=== PATIENT | female | born 1990 | race African-American/Black ===

== ENCOUNTER 2017-03-25 17:49 | Emergency (ER) | payer SELFPAY ==
[~2017-03-25] VITALS: Ht 175.3 cm; Wt 125.0 kg
[~2017-03-25 17:49] MED LIST: IBUP800T23 PO; METH750T2 PO
[2017-03-25 17:51] VITALS: BP 146/82; PULSE 92; RESP 20; TEMP 98; O2SAT 98
[2017-03-25] MEDS ORDERED: MULTTAB67 PO (18:11)
[2017-03-25] MEDS ORDERED: DICL75TA PO (18:26)
[2017-03-25] MEDS ORDERED: OFLO0.3D9 RIGHT EAR (18:26)
[2017-03-25] MEDS ORDERED: AMOX875T PO (18:26)
[2017-03-25] MEDS ORDERED: ACETAMINOPHEN/HYDROcodone 325 MG/5 MG TAB PO ONE (18:30)
--- NOTE | 2017-03-25 18:40 | PD ---
HPI Chief Complaint: ENT Complaint Time Seen by Provider: 18:34 Travel History International Travel<30 days: No Contact w/Intl Traveler<30days: No Traveled to known affect area: No History of Present Illness HPI 26 yo female here for evaluation of ear pain. Bilateral but worst on the right. Discharge noted. Pain is 6/10. Started yesterday but worse today. has been putting ear drops to get rid of the earwax with no relief. States having chronic allergies and thought this was it. No other symptoms reported. PFSH Past Medical History Hx Anticoagulant Therapy: No Cardiovascular Problems: No Chemotherapy: No Cerebrovascular Accident: No Diabetes: No Diminished Hearing: No Hypertension: Yes (gestational) Respiratory: No Pancreatitis: Yes ?: Not : 5 Para: 2 Miscarriage: 2 : 1 Dilation and Curettage (D&C): Yes (2008) Past Surgical History Section: Yes (x2) Gynecologic Surgery: Yes Hysterectomy: No Social History Alcohol Use: Yes Tobacco Use: No Substance Use: No Allergies-Medications (Allergen,Severity, Reaction): Coded Allergies: Bactrim (Verified Allergy, Severe, Itching, 03/25/17) Levaquin (Verified Allergy, Severe, Itching, 03/25/17) Sulfa (Verified Allergy, Severe, Hives, 03/25/17) Chocolate (Verified Allergy, Intermediate, HIVES, ITCHING, 03/25/17) Uncoded Allergies: DIAL SOAP (Allergy, Mild, HIVES, 10/09/08) Reported Meds & Prescriptions Reported Meds & Active Scripts Active Diclofenac Sodium DR (Diclofenac Sodium) 75 Mg Tabdr 75 Mg PO BID Ofloxacin Otic Drops 0.3 % Drops 5 Drop RIGHT EAR DAILY Amoxicillin 875 Mg Tab 875 Mg PO BID 10 Days Reported Multiple Vitamin 1 Tab 1 Tab PO DAILY Review of Systems Except as stated in HPI: all other systems reviewed are Neg Physical Exam Narrative GENERAL: SKIN: Warm and dry. HEAD: Atraumatic. Normocephalic. EYES: Pupils equal and round. No scleral icterus. No injection or drainage. ENT: No nasal bleeding or discharge. Mucous membranes pink and moist. Tongue is midline. No uvula deviation. Right TM cannot be visualized secondary to swelling to the ear canal and mild earwax. Drainage noted. Left TM has cerumen impaction otherwise normal. No lymphadenopathy. Nostrils patent with no discharge or mass. No mastoid tenderness. NECK: Trachea midline. No JVD. CARDIOVASCULAR: Regular rate and rhythm. RESPIRATORY: No accessory muscle use. Clear to auscultation. Breath sounds equal bilaterally. GASTROINTESTINAL: Abdomen soft, non-tender, nondistended. Hepatic and splenic margins not palpable. MUSCULOSKELETAL: Extremities without clubbing, cyanosis, or edema. No obvious deformities. NEUROLOGICAL: Awake and alert. No obvious cranial nerve deficits. Motor grossly within normal limits. Five out of 5 muscle strength in the arms and legs. Normal speech. PSYCHIATRIC: Appropriate mood and affect; insight and judgment normal. Data Data Last Documented VS Vital Signs Date Time Temp Pulse Resp B/P Pulse Ox O2 Delivery O2 Flow Rate FiO2 03/25/17 17:51 98.0 92 20 146/82 98 Room Air Orders Acetamin-Hydrocod 325-5 Mg ([place] 5-325 (03/25/17 18:30) MDM Medical Decision Making Medical Screen Exam Complete: Yes Emergency Medical Condition: Yes Medical Record Reviewed: Yes Differential Diagnosis otitis media vs otitis externa vs allergic reaction Narrative Course 26 yo female here for ear pain. patient was examined and found to have otitis externa with possible media. Will treat for both with amoxicillin and ofloxacin. Given pain med her secondary to pain. Given prescription for diclofenac sodium for pain. F/u with PCP. See ED if worst. Diagnosis Primary Impression: Otitis externa of right ear Qualified Code: H60.501 - Acute otitis externa of right ear, unspecified type Additional Impression: Otitis media Qualified Code: H66.001 - Acute suppurative otitis media of right ear without spontaneous rupture of tympanic membrane, recurrence not specified Patient Instructions: General Instructions Additional Instructions: Motrin and Tylenol for pain and fever. You can use [id number] antihistamine as well as well as Mucinex as needed for runny nose and congestion. Cough drops for cough as needed. Drink plenty of fluids. Follow-up with PCP. See ED for worsening symptoms. Med/Other Pt SpecificInfo: Prescription(s) given Scripts Diclofenac Sodium DR 75 Mg Tabdr75 Mg PO BID #20 TAB Ref 0 Prov:Quincy Gregory MD 03/25/17 Ofloxacin Otic Drops 0.3 % Drops5 Drop RIGHT EAR DAILY #1 BOTTLE Ref 0 Prov:Quincy Gregory MD 03/25/17 Amoxicillin 875 Mg [id number] Mg PO BID 10 Days Prov:Quincy Gregory MD 03/25/17 Disposition: 01 DISCHARGE HOME Condition: Stable Juvencio Bruno Mar 25, 2017 18:40
== END 2017-03-25 18:52 | disposition home or self-care (01) ==
LOC: NEPD 17:49
DX: H60.501 Unspecified acute noninfective otitis externa, right ear (principal); H66.001 Acute suppurative otitis media without spontaneous rupture of ear drum, right ear; K85.90 Acute pancreatitis without necrosis or infection, unspecified
CPT/HCPCS: 99283

== ENCOUNTER 2017-06-20 09:56 | Emergency (ER) | payer MEDICAID, OTHER ==
[~2017-06-20] VITALS: Ht 175.3 cm; Wt 120.5 kg
[~2017-06-20 09:56] MED LIST changes: +AMOX875T PO; +DICL75TA PO; -IBUP800T23 PO; -METH750T2 PO; +MULTTAB67 PO; +OFLO0.3D9 RIGHT EAR
[2017-06-20 09:58] VITALS: BP 148/88; PULSE 80; RESP 20; TEMP 98.8; O2SAT 100
[2017-06-20] MEDS ORDERED: PREN1TAB58 (10:27)
[2017-06-20 10:32] LABS: AUTOMATED NEUTROPHIL # 6.7 TH/MM3 (1.8-7.7); BASOPHIL # 0.1 TH/MM3 (0-0.2); BASOPHIL % 1.1 % (0.0-2.0); EOSINOPHIL # 0.1 TH/MM3 (0-0.4); EOSINOPHIL % 0.9 % (0.0-4.0); HEMATOCRIT 39.9 % (35.0-46.0); HEMO FLAGS DIFF FINAL; LYMPH % 12.6 % (9.0-44.0); LYMPHOCYTE # 1.1 TH/MM3 (1.0-4.8); MEAN CORPUSCULAR HEMOGLOBIN 30.9 PG (27.0-34.0); MEAN CORPUSCULAR HGB CONC 33.2 % (32.0-36.0); MONO % 8.5 % (0.0-8.0); NEUT % 76.9 % (16.0-70.0); PLATELET COUNT 221 TH/MM3 (150-450); RED BLOOD COUNT 4.29 MIL/MM3 (4.00-5.30); RED CELL DISTRIBUTION WIDTH 13.5 % (11.6-17.2); WHITE BLOOD COUNT 8.7 TH/MM3 (4.0-11.0)
[2017-06-20 10:49] LABS: BICARBONATE 23.9 MEQ/L (21.0-32.0); POTASSIUM 3.9 MEQ/L (3.5-5.1)
[2017-06-20 10:50] LABS: BLOOD, URINE NEG (NEG); COMMENT (UR) CULT NOT INDICATED; CULTURE IF INDICATED CULT NOT INDICATED; GLUCOSE,URINE NEG (NEG); HYALINE CAST, URINE 1 /lpf (RARE); KETONE, URINE NEG (NEG); NITRITE,URINE NEG (NEG); SQUAMOUS EPITHELIAL CELL URINE 16 /hpf (0-5); URINE COLOR YELLOW (YELLW/STRAW)
[2017-06-20 11:05] VITALS: BP 138/67; PULSE 70; RESP 18; O2SAT 100
--- NOTE | 2017-06-20 11:58 | PD ---
HPI Chief Complaint: Abdominal Pain Time Seen by Provider: 11:14 Travel History International Travel<30 days: No Contact w/Intl Traveler<30days: No Traveled to known affect area: No History of Present Illness HPI This is a 27-year-old female who presents to the emergency department with right upper quadrant abdominal pain that's been going on for 4 days, intermittent, moderate severity, feeling like a stabbing pain that goes away. She denies any fevers or chills. She's had some loose stools today. She has been vomiting that she had a positive home test. She's not seen a oxyacetylene burner yet. This is her third . PFSH Past Medical History Hx Anticoagulant Therapy: No Cardiovascular Problems: No Chemotherapy: No Cerebrovascular Accident: No Diabetes: No Diminished Hearing: No Hypertension: Yes (gestational) Respiratory: No Pancreatitis: Yes ?: : 5 Para: 2 Miscarriage: 2 : 1 Dilation and Curettage (D&C): Yes (2009) Past Surgical History Section: Yes (x2) Gynecologic Surgery: Yes Hysterectomy: No Social History Alcohol Use: Yes Tobacco Use: No Substance Use: No Allergies-Medications (Allergen,Severity, Reaction): Coded Allergies: Sulfa (Sulfonamide Antibiotics) (Verified Allergy, Severe, Hives, 06/20/17) levofloxacin (Verified Allergy, Severe, Itching, 06/20/17) sulfamethoxazole (Verified Allergy, Severe, Itching, 06/20/17) trimethoprim (Verified Allergy, Severe, Itching, 06/20/17) chocolate flavor (Verified Allergy, Intermediate, HIVES, ITCHING, 06/20/17) Uncoded Allergies: DIAL SOAP (Allergy, Mild, HIVES, 10/09/08) Reported Meds & Prescriptions Reported Meds & Active Scripts Active Reported Vitamin Formula Tb ( Vit/Iron Fumarate/FA) 27 Mg Iron-800 Mcg Tablet Review of Systems Except as stated in HPI: all other systems reviewed are Neg Physical Exam Narrative GENERAL:Well appearing, no acute distress SKIN: Focused skin assessment warm and dry. HEAD: Atraumatic. Normocephalic. EYES: Pupils equal and round. No injection or drainage. ENT: Moist mucous membranes NECK: Trachea midline. CARDIOVASCULAR: Regular rate and rhythm. No murmur appreciated. RESPIRATORY: Clear to auscultation. Breath sounds equal bilaterally. GASTROINTESTINAL: Abdomen soft, non-tender, nondistended. MUSCULOSKELETAL: No obvious deformities. NEUROLOGICAL: Awake and alert. No obvious cranial nerve deficits. Moving all extremities. PSYCHIATRIC: Appropriate mood and affect; insight and judgment normal. Data Data Last Documented VS Vital Signs Date Time Temp Pulse Resp B/P (MAP) Pulse Ox O2 Delivery O2 Flow Rate FiO2 06/20/17 11:05 70 18 138/67 (90) 100 Room Air 06/20/17 09:58 98.8 Orders Orders Complete Blood Count With Diff (06/20/17 10:06) Basic Metabolic Panel (Bmp) (06/20/17 10:06) Urinalysis - C+S If Indicated (06/20/17 10:06) Ed Urine Pregnancytest Poc (06/20/17 10:06) Us Pelvis (Ques Preg/Ectopic) (06/20/17 ) Beta Hcg (Quant/Titer) (06/20/17 10:16) Hepatic Functional Panel (06/20/17 11:53) Lipase (06/20/17 11:53) Labs Laboratory Tests Test 06/20/17 10:10 06/20/17 10:16 Urine Color YELLOW Urine Turbidity HAZY Urine pH 7.0 Urine Specific [place] 1.022 Urine Protein 100 mg/dL Urine Glucose (UA) NEG mg/dL Urine Ketones NEG mg/dL Urine Occult Blood NEG Urine Nitrite NEG Urine Bilirubin NEG Urine Urobilinogen LESS THAN 2.0 MG/DL Urine Leukocyte Esterase NEG Urine RBC 1 /hpf Urine WBC 1 /hpf Urine Squamous Epithelial Cells 16 /hpf Urine Hyaline Casts 1 /lpf Microscopic Urinalysis Comment CULT NOT INDICATED White Blood Count 8.7 TH/MM3 Red Blood Count 4.29 MIL/MM3 Hemoglobin 13.2 GM/DL Hematocrit 39.9 % Mean Corpuscular Volume 93.0 FL Mean Corpuscular Hemoglobin 30.9 PG Mean Corpuscular Hemoglobin Concent 33.2 % Red Cell Distribution Width 13.5 % Platelet Count 221 TH/MM3 Mean Platelet Volume 8.7 FL Neutrophils (%) (Auto) 76.9 % Lymphocytes (%) (Auto) 12.6 % Monocytes (%) (Auto) 8.5 % Eosinophils (%) (Auto) 0.9 % Basophils (%) (Auto) 1.1 % Neutrophils # (Auto) 6.7 TH/MM3 Lymphocytes # (Auto) 1.1 TH/MM3 Monocytes # (Auto) 0.7 TH/MM3 Eosinophils # (Auto) 0.1 TH/MM3 Basophils # (Auto) 0.1 TH/MM3 CBC Comment DIFF FINAL Differential Comment Blood Urea Nitrogen 7 MG/DL Creatinine 0.78 MG/DL Random Glucose 84 MG/DL Calcium Level 8.7 MG/DL Sodium Level 136 MEQ/L Potassium Level 3.9 MEQ/L Chloride Level 105 MEQ/L Carbon Dioxide Level 23.9 MEQ/L Anion Gap 7 MEQ/L Estimat Glomerular Filtration Rate 106 ML/MIN Human Chorionic Gonadotropin, Quant 75243 MIU/ML MDM Medical Decision Making Medical Screen Exam Complete: Yes Emergency Medical Condition: Yes Interpretation(s) Afebrile, no tachycardia No leukocytosis 76% neutrophils Electrolytes are reassuring HCG is negative Urinalysis is negative for infection Differential Diagnosis Cholelithiasis, cholecystitis, ectopic , pancreatitis, gastritis, GERD Narrative Course This is a 27-year-old female who presents to the emergency department with intermittent right upper quadrant pain. She is . She is placed on a monitor and an IV was established. Labs were obtained which demonstrate no leukocytosis. Pelvic ultrasound was obtained which demonstrates a 7 week intrauterine with a heart rate of 157. I suspect the patient may have biliary colic. I don't think an emergent ultrasound is necessary given she has no other signs of acute cholecystitis. I asked her to avoid fatty foods. She will follow up with her outpatient savings counselor. I think patient is safe for discharge. Diagnosis Primary Impression: Biliary colic Patient Instructions: General Instructions Additional Instructions: If you develop severe or worsening abdominal pain, fever>100.4, persistent vomiting or inability to eat or drink return to the emergency department immediately. Follow-up with your savings counselor at your next scheduled appointment. Avoid eating fatty foods. Med/Other Pt SpecificInfo: No Change to Meds Disposition: 01 DISCHARGE HOME Condition: Stable Janice Cornelius MD Jun 20, 2017 11:58
--- NOTE | 2017-06-20 12:03 | RADRPT ---
EXAM DATE/TIME: 06/20/2017 11:08 [facility] COMPARISON: No previous studies available for comparison. INDICATIONS : Pelvic pain. LAB(S): Beta-hC,787 MEDICAL HISTORY : . Gestational hypertension. Pancreatitis. SURGICAL HISTORY : Dilation and curettage. Left knee surgery. ENCOUNTER: Initial ACUITY: 2 days PAIN SCORE: 7/10 LOCATION: Bilateral pelvis MEASUREMENTS: UTERUS: 11.0 x 6.0 x 6.4 cm ENDOMETRIAL STRIPE: 19 mm RIGHT OVARY: 2.8 x 2.2 x 2.0 cm LEFT OVARY: 3.1 x 2.8 x 2.1 cm FREE FLUID: No CROWN RUMP LENGTH: 1.3 cm = 7 WKS 3 DAYS FHR: 157 BPM FINDINGS: A single intrauterine is identified and demonstrates cardiac activity. The crown rump azael th correlates to a gestational age of 7 weeks and 3 days. The gestational sac size correlates to a g estational age of 7 weeks and 3 days also. The heart rate is confirmed at 157 BMP. A yolk sac is noted. There is no free fluid within the cul de sac or adnexal mass. There is a small hypoechoi c area adjacent to the gestational sac measuring 1.7 x .9 x 1.7 cm consistent with a possible small s ubchorionic hemorrhage. A complex cyst is noted within the left ovary measuring 1.0 x 1.0 x 1.5 cm. The right ovary is unremarkable. CONCLUSION: 1. A single intrauterine with cardiac activity. [place] rump length correlates to a gestatio nal age of 7 weeks and 3 days. 2. No evidence of free fluid within the cul de sac or adnexal mass. 3. Possible small subchorionic hemorrhage measuring 1.7 x .9 x 1.7 cm. Quincy Flores MD on June 20, 2017 at 11:46 Board Certified Radiologist. This report was verified electronically.
[2017-06-20 12:17] LABS: INDIRECT BILIRUBIN 0.2 MG/DL (0.0-0.8); TOTAL BILIRUBIN ADULT 0.3 MG/DL (0.2-1.0)
[2017-06-20 12:25] VITALS: BP 138/69
== END 2017-06-20 12:25 | disposition home or self-care (01) ==
LOC: NEPD 09:56
DX: O99.611 Diseases of the digestive system complicating pregnancy, first trimester (principal); K80.50 Calculus of bile duct without cholangitis or cholecystitis without obstruction; Z3A.01 Less than 8 weeks gestation of pregnancy
CPT/HCPCS: 76700; 80048; 80076; 81001; 83690; 84702; 84703; 85025; 99284

== ENCOUNTER 2017-07-15 11:33 | Emergency (ER) | payer MEDICAID ==
[~2017-07-15] VITALS: Ht 175.3 cm; Wt 120.0 kg
[~2017-07-15 11:33] MED LIST changes: -AMOX875T PO; -DICL75TA PO; -MULTTAB67 PO; -OFLO0.3D9 RIGHT EAR; +PREN1TAB58
[2017-07-15 11:36] VITALS: BP 132/72; PULSE 90; RESP 13; TEMP 99.5; O2SAT 96
[2017-07-15 12:22] VITALS: BP 128/82; PULSE 90; RESP 17; TEMP 98.8; O2SAT 99
--- NOTE | 2017-07-15 12:24 | PD ---
HPI Chief Complaint: Related Problem Time Seen by Provider: 12:23 Travel History International Travel<30 days: No Contact w/Intl Traveler<30days: No Traveled to known affect area: No History of Present Illness HPI 27-year-old female who is approximately 9 weeks gestation presents to the emergency department for evaluation of lower abdominal pressure, burning with urination, and pain on her toilet paper after wiping. This started this morning. Denies any vaginal discharge. Denies any nausea or vomiting. No fever or chills. Patient has no other symptoms to report. IUP confirmed on last visit at approximately 7 weeks. PFSH Past Medical History Hx Anticoagulant Therapy: No Cardiovascular Problems: No Chemotherapy: No Cerebrovascular Accident: No Diabetes: No Diminished Hearing: No Hypertension: Yes (gestational) Respiratory: No Pancreatitis: Yes ?: : 5 Para: 2 Miscarriage: 2 : 1 Dilation and Curettage (D&C): Yes (2009) Past Surgical History Section: Yes (x2) Gynecologic Surgery: Yes Hysterectomy: No Social History Alcohol Use: No Tobacco Use: No Substance Use: No Allergies-Medications (Allergen,Severity, Reaction): Coded Allergies: Sulfa (Sulfonamide Antibiotics) (Verified Allergy, Severe, Hives, 07/15/17) levofloxacin (Verified Allergy, Severe, Itching, 07/15/17) sulfamethoxazole (Verified Allergy, Severe, Itching, 07/15/17) trimethoprim (Verified Allergy, Severe, Itching, 07/15/17) chocolate flavor (Verified Allergy, Intermediate, HIVES, ITCHING, 07/15/17) Uncoded Allergies: DIAL SOAP (Allergy, Mild, HIVES, 10/09/08) Reported Meds & Prescriptions Reported Meds & Active Scripts Active Keflex (Cephalexin) 500 Mg Cap 500 Mg PO Q12H 7 Days Reported Vitamin Formula Tb ( Vit/Iron Fumarate/FA) 27 Mg Iron-800 Mcg Tablet Review of Systems Except as stated in HPI: all other systems reviewed are Neg Physical Exam Narrative GENERAL: Well-nourished female patient, in no acute distress SKIN: Focused skin assessment warm/dry. HEAD: Atraumatic. Normocephalic. EYES: Pupils equal and round. No scleral icterus. No injection or drainage. ENT: No nasal bleeding or discharge. Mucous membranes pink and moist. NECK: Trachea midline. No JVD. CARDIOVASCULAR: Regular rate and rhythm. No murmur appreciated. RESPIRATORY: No accessory muscle use. Clear to auscultation. Breath sounds equal bilaterally. GASTROINTESTINAL: Abdomen soft, distended. Suprapubic tenderness to palpation. Hepatic and splenic margins not palpable. GENITOURINARY: Normal external genitalia without lesions or erythema. Vaginal vault without blood or drainage. Cervical os was closed without drainage. No cervical motion tenderness. Uterus nontender and nonenlarged. Bilateral adnexa nontender without masses. MUSCULOSKELETAL: No obvious deformities. No clubbing. No cyanosis. No edema. NEUROLOGICAL: Awake and alert. No obvious cranial nerve deficits. Motor grossly within normal limits. Normal speech. PSYCHIATRIC: Appropriate mood and affect; insight and judgment normal. Data Data Last Documented VS Vital Signs Date Time Temp Pulse Resp B/P (MAP) Pulse Ox O2 Delivery O2 Flow Rate FiO2 07/15/17 14:39 07/15/17 13:50 74 17 100 Room Air 07/15/17 12:22 98.8 Orders Orders Urinalysis - C+S If Indicated (07/15/17 12:38) Gc And Chlamydia Pcr (07/15/17 12:38) Wet Prep Profile (07/15/17 12:38) Sodium Chlor 0.9% 1000 Ml Inj (Ns 1000 M (07/15/17 13:30) Labs Laboratory Tests Test 07/15/17 12:00 07/15/17 12:50 Urine Color YELLOW Urine Turbidity HAZY Urine pH 7.0 Urine Specific [place] 1.022 Urine Protein 100 mg/dL Urine Glucose (UA) NEG mg/dL Urine Ketones TRACE mg/dL Urine Occult Blood NEG Urine Nitrite NEG Urine Bilirubin NEG Urine Urobilinogen LESS THAN 2.0 MG/DL Urine Leukocyte Esterase NEG Urine RBC 1 /hpf Urine WBC 3 /hpf Urine Squamous Epithelial Cells 23 /hpf Urine Mucus FEW /lpf Microscopic Urinalysis Comment CULT NOT INDICATED Clue Cells (Wet Prep) NONE SEEN Vaginal Trichomonas (Wet Prep) NONE SEEN Vaginal Yeast (Wet Prep) NONE SEEN Chlamydia trachomatis DNA (PCR) NOT DETECTED Neisseria gonorrhoeae DNA (PCR) NOT DETECTED MDM Medical Decision Making Medical Screen Exam Complete: Yes Emergency Medical Condition: Yes Medical Record Reviewed: Yes Differential Diagnosis Cystitis versus vaginitis versus urethritis versus pyelonephritis versus STD versus BV Narrative Course 27 year-old female presents to the department for evaluation. Patient appears well. Vital signs are stable. Physical exam is without acute concerns except for suprapubic tenderness. Laboratory Tests Test 07/15/17 12:00 07/15/17 12:50 Urine Color YELLOW Urine Turbidity HAZY Urine pH 7.0 Urine Specific [place] 1.022 Urine Protein 100 mg/dL Urine Glucose (UA) NEG mg/dL Urine Ketones TRACE mg/dL Urine Occult Blood NEG Urine Nitrite NEG Urine Bilirubin NEG Urine Urobilinogen LESS THAN 2.0 MG/DL Urine Leukocyte Esterase NEG Urine RBC 1 /hpf Urine WBC 3 /hpf Urine Squamous Epithelial Cells 23 /hpf Urine Mucus FEW /lpf Microscopic Urinalysis Comment CULT NOT INDICATED Clue Cells (Wet Prep) NONE SEEN Vaginal Trichomonas (Wet Prep) NONE SEEN Vaginal Yeast (Wet Prep) NONE SEEN Chlamydia trachomatis DNA (PCR) NOT DETECTED Neisseria gonorrhoeae DNA (PCR) NOT DETECTED Urine, wet prep, and GC PCR all without acute concern. Patient was discharged home to follow-up with her primary care provider. She agrees to return immediately with any acute worsening of symptoms. Diagnosis Primary Impression: Pelvic pressure in female Additional Impressions: IUP (intrauterine ), incidental Dysuria Referrals: Primary Care Physician Patient Instructions: Dysuria (ED), General Instructions Additional Instructions: Maintain adequate oral hydration Seek cooperer evaluation Return immediately to the emergency department with any acute worsening of symptoms Med/Other Pt SpecificInfo: Prescription(s) given Disposition: 01 DISCHARGE HOME Condition: Stable McnealKatelyn heck MELINDA Jul 15, 2017 12:24
[2017-07-15 13:23] LABS: BLOOD, URINE NEG (NEG); COMMENT (UR) CULT NOT INDICATED; CULTURE IF INDICATED CULT NOT INDICATED; GLUCOSE,URINE NEG (NEG); KETONE, URINE TRACE mg/dL (NEG); MUCUS URINE FEW /lpf (OCC); NITRITE,URINE NEG (NEG); SQUAMOUS EPITHELIAL CELL URINE 23 /hpf (0-5); URINE COLOR YELLOW (YELLW/STRAW)
[2017-07-15] MEDS ORDERED: SODIUM CHLOR 0.9% 1000 ML INJ 1,000 ML IV ONE (13:30)
[2017-07-15 13:50] VITALS: BP 130/76; PULSE 74; RESP 17; O2SAT 100
[2017-07-15] MEDS ORDERED: CEPH-460 PO (13:50)
[2017-07-15 17:39] LABS: CHLAMYDIA PCR NOT DETECTED (NOT DETECT); NEISSERIA PCR NOT DETECTED (NOT DETECT)
== END 2017-07-15 14:48 | disposition home or self-care (01) ==
LOC: NEPD 11:33
DX: R30.0 Dysuria (principal); O26.91 Pregnancy related conditions, unspecified, first trimester; O16.1 Unspecified maternal hypertension, first trimester; Z3A.09 9 weeks gestation of pregnancy
CPT/HCPCS: 81001; 87210; 87491; 87591; 96360; 99284; J7030

== ENCOUNTER 2017-08-11 23:08 | Emergency (ER) | payer MEDICAID ==
[~2017-08-11] VITALS: Ht 175.3 cm; Wt 125.0 kg
[2017-08-11 23:09] VITALS: BP 146/83; PULSE 88; RESP 16; TEMP 99; O2SAT 97
[2017-08-12 01:08] VITALS: BP 143/65; PULSE 76; RESP 18; O2SAT 100
[2017-08-12] MEDS ORDERED: ACETAMINOPHEN 500 MG CPLT PO ONE (02:30)
[2017-08-12] MEDS ORDERED: diphenhydrAMINE HCL 50 MG/ML VIAL IV PUSH ONE (02:30)
[2017-08-12 03:12] LABS: BLOOD, URINE NEG (NEG); COMMENT (UR) CULT NOT INDICATED; CULTURE IF INDICATED CULT NOT INDICATED; GLUCOSE,URINE NEG (NEG); KETONE, URINE NEG (NEG); MUCUS URINE FEW /lpf (OCC); NITRITE,URINE NEG (NEG); SQUAMOUS EPITHELIAL CELL URINE 9 /hpf (0-5); URINE COLOR YELLOW (YELLW/STRAW)
[2017-08-12 04:30] VITALS: BP 107/71
--- NOTE | 2017-08-12 04:41 | PD ---
HPI Chief Complaint: Related Problem Time Seen by Provider: 01:50 Travel History International Travel<30 days: No Contact w/Intl Traveler<30days: No Traveled to known affect area: No History of Present Illness HPI and feels cramping like period cramps worried over baby she is 14 weeks preg PFSH Past Medical History Hx Anticoagulant Therapy: No Cardiovascular Problems: No Chemotherapy: No Cerebrovascular Accident: No Diabetes: No Diminished Hearing: No Hypertension: Yes (gestational) Respiratory: No Pancreatitis: Yes ?: : 5 Para: 2 Miscarriage: 2 : 1 Dilation and Curettage (D&C): Yes (2008) Past Surgical History Section: Yes (x2) Gynecologic Surgery: Yes Hysterectomy: No Social History Alcohol Use: No Tobacco Use: No Substance Use: No Allergies-Medications (Allergen,Severity, Reaction): Coded Allergies: Sulfa (Sulfonamide Antibiotics) (Verified Allergy, Severe, Hives, 08/12/17) levofloxacin (Verified Allergy, Severe, Itching, 08/12/17) sulfamethoxazole (Verified Allergy, Severe, Itching, 08/12/17) trimethoprim (Verified Allergy, Severe, Itching, 08/12/17) chocolate flavor (Verified Allergy, Intermediate, HIVES, ITCHING, 08/12/17) Uncoded Allergies: DIAL SOAP (Allergy, Mild, HIVES, 10/09/08) Reported Meds & Prescriptions Reported Meds & Active Scripts Active Reported Vitamin Formula Tb ( Vit/Iron Fumarate/FA) 27 Mg Iron-800 Mcg Tablet Review of Systems Except as stated in HPI: all other systems reviewed are Neg Gastrointestinal: Positive: Abdominal Pain (cramping like abdo spams) Physical Exam Narrative GENERAL: SKIN: Warm and dry. HEAD: Atraumatic. Normocephalic. EYES: Pupils equal and round. No scleral icterus. No injection or drainage. ENT: No nasal bleeding or discharge. Mucous membranes pink and moist. NECK: Trachea midline. No JVD. CARDIOVASCULAR: Regular rate and rhythm. RESPIRATORY: No accessory muscle use. Clear to auscultation. Breath sounds equal bilaterally. bedside POC sono HR on m-MODE 143 and CRL measures by this MD 13weeks 6 days GASTROINTESTINAL: Abdomen soft, non-tender, nondistended. Hepatic and splenic margins not palpable. MUSCULOSKELETAL: Extremities without clubbing, cyanosis, or edema. No obvious deformities. NEUROLOGICAL: Awake and alert. No obvious cranial nerve deficits. Motor grossly within normal limits. Five out of 5 muscle strength in the arms and legs. Normal speech. PSYCHIATRIC: Appropriate mood and affect; insight and judgment normal. Data Data Last Documented VS Vital Signs Date Time Temp Pulse Resp B/P (MAP) Pulse Ox O2 Delivery O2 Flow Rate FiO2 08/12/17 04:30 107/71 (83) 98 08/12/17 01:08 76 18 Room Air 08/11/17 23:09 99.0 Orders Orders Diphenhydramine Inj (Benadryl Inj) (08/12/17 02:30) Acetaminophen (Tylenol) (08/12/17 02:30) Urinalysis - C+S If Indicated (08/12/17 02:34) Labs Laboratory Tests Test 08/12/17 02:43 Urine Color YELLOW Urine Turbidity HAZY Urine pH 6.0 Urine Specific [place] 1.013 Urine Protein 30 mg/dL Urine Glucose (UA) NEG mg/dL Urine Ketones NEG mg/dL Urine Occult Blood NEG Urine Nitrite NEG Urine Bilirubin NEG Urine Urobilinogen LESS THAN 2.0 MG/DL Urine Leukocyte Esterase SMALL Urine RBC 2 /hpf Urine WBC 2 /hpf Urine Squamous Epithelial Cells 9 /hpf Urine Mucus FEW /lpf Microscopic Urinalysis Comment CULT NOT INDICATED MDM Medical Decision Making Medical Screen Exam Complete: Yes Emergency Medical Condition: Yes Differential Diagnosis round ligament pain annita Zambrano Threatened AB Narrative Course BEDSIDE SONO by this MD HR 143 on M-Mode and CRL on sono 13weeks and 6 days concordant with days Diagnosis Primary Impression: Round ligament pain Additional Impression: Abdominal pain during Qualified Codes: O26.891 - Other specified related conditions, first trimester; R10.9 - Unspecified abdominal pain Patient Instructions: Abdominal Pain in (ED), General Instructions Disposition: 01 DISCHARGE HOME Condition: Rodrick Garcia MD Aug 12, 2017 04:41
== END 2017-08-12 05:01 | disposition home or self-care (01) ==
LOC: NEPC 23:08
DX: O26.891 Other specified pregnancy related conditions, first trimester (principal); R10.2 Pelvic and perineal pain; Z3A.13 13 weeks gestation of pregnancy
CPT/HCPCS: 81001; 96374; 99284; J1200

== ENCOUNTER 2017-11-17 01:49 | Emergency (ER) | payer MEDICAID ==
--- NOTE | 2017-11-17 02:41 | PD ---
HPI Chief Complaint Vaginal pressure Date Seen: Nov 17, 2017 Travel History International Travel<30 Days: No Contact w/Intl Traveler<30Days: No Known Affected Area: No History of Present Illness HPI 27-year-old 3 para 2 at 30 weeks gestation who presents with increasing vaginal pressure. She denies any bleeding, leakage of fluid or cramping. She has some back pain down below also. History Past Medical History Medical History: Denies Significant Hx Obstetric History Obstetric History 2 prior C-sections Uncomplicated current Obesity Past Surgical History Narrative Surgical 2 Knee Family History Family History: Negative Social History Alcohol Use: No Tobacco Use: No Substance Abuse: No Allergies-Medications (Allergen,Severity, Reaction): Coded Allergies: Sulfa (Sulfonamide Antibiotics) (Verified Allergy, Severe, Hives, 08/12/17) levofloxacin (Verified Allergy, Severe, Itching, 08/12/17) sulfamethoxazole (Verified Allergy, Severe, Itching, 08/12/17) trimethoprim (Verified Allergy, Severe, Itching, 08/12/17) chocolate flavor (Verified Allergy, Intermediate, HIVES, ITCHING, 08/12/17) Uncoded Allergies: DIAL SOAP (Allergy, Mild, HIVES, 10/09/08) Home Meds Reported Medications Vit/Iron Fumarate/FA ( Vitamin Formula Tb) 27 Mg Iron-800 Mcg Tablet 06/20/17 Review of Systems Except as stated in HPI: all other systems reviewed are Neg Physical Exam Narrative GENERAL: Well-nourished, well-developed patient. SKIN: Warm and dry. HEAD: Normocephalic and atraumatic. EYES: No scleral icterus. No injection or drainage. ENT: No nasal drainage noted. Mucous membranes pink. Airway patent. NECK: Supple, trachea midline. No JVD. CARDIOVASCULAR: Regular rate and rhythm without murmurs, gallops, or rubs. RESPIRATORY: Breath sounds equal bilaterally. No accessory muscle use. ABDOMEN/GI: Abdomen soft, non-tender, bowel sounds present, no rebound, no guarding Gravid to [-] weeks size Fundal Height: [-] GENITOURINARY: External Genitalia: intact and normal in appearance BUS glands: [-Negative] Cervix: [-] Dilatation: [Closed-] Effacement: [-Long] Station: [-High] Presentation: [-] Membranes: [intact Uterine Contractions: [None-] FHT's: Category: [-] Baseline: [-] Reactive: [Yes-] Variability: [-] Decels: [-] EXTREMITIES: No cyanosis or edema. BACK: Nontender without obvious deformity. No CVA tenderness. NEUROLOGICAL: Awake and alert. Motor and sensory grossly within normal limits. Five out of 5 muscle strength in all muscle groups. Normal speech. Data Data Vital Signs Reviewed: Yes MDM Medical Record Reviewed: Yes Narrative Course / MDM Assessment: 30 week intrauterine without evidence of labor, likely discomfort of Plan: Precautions were reviewed with the patient. Follow for routine care. Diagnosis Diagnosis: Primary Impression: 30 weeks gestation of Additional Impression: Abdominal pain during Disposition: 01 DISCHARGE HOME Condition: Good Te Randle MD Nov 17, 2017 02:41
== END 2017-11-17 02:44 | disposition home or self-care (01) ==
LOC: HOBED 01:49
DX: O26.893 Other specified pregnancy related conditions, third trimester (principal); R10.9 Unspecified abdominal pain; Z3A.30 30 weeks gestation of pregnancy; Z88.2 Allergy status to sulfonamides; Z88.8 Allergy status to other drugs, medicaments and biological substances
CPT/HCPCS: 99283